=== PATIENT | male | born 1985 | race Two or more races ===

== ENCOUNTER 2018-04-24 08:04 | Emergency (ER) | payer MEDICARE, MEDICAID ==
[~2018-04-24] VITALS: Ht 167.6 cm; Wt 68.0 kg
[2018-04-24] MEDS ORDERED: LIDOCAINE 2% (LOCAL ANESTH.) PF 5ml SDV ONE (08:39)
[2018-04-24] MEDS ORDERED: LIDOCAINE 2% (LOCAL ANESTH.) PF 5ml SDV IJ ONE (08:45)
[2018-04-24 10:12] LABS: Basophils # (auto) 0.1 uL; Eosinophils # (auto) 0.7 uL; Hemoglobin 13.9 g/dL (13.5-17.5); Lymphocytes # (auto) 0.8 uL; Neutrophils # (auto) 3.9 uL; White Blood Cell 6.1 10^3/uL (4.4-10.8)
[2018-04-24 10:15] LABS: Basophils % (auto) 1.7 % (0.0-2.0); Eosinophils % (auto) 10.7 % (0.0-7.0); Hematocrit 45.3 % (41.0-53.0); Lymphocytes % (auto) 12.6 % (10.0-50.0); Mean Corpuscular Hemoglobin 23.7 pg (28.0-32.0); Mean Corpuscular Hgb Conc. 30.6 g/dL (32.0-36.0); Mean Corpuscular Volume 77.3 fL (80.0-100.0); Monocytes # (auto) 0.7 uL; Monocytes % (auto) 10.9 % (0.0-12.0); Neutrophils % (auto) 64.1 % (37.0-80.0); Nucleated Red Blood Cells % 0.7 %; Platelet Count (auto) 151 10^3/uL (140-450); Red Blood Cells 5.87 10^6/uL (4.5-5.90)
[2018-04-24 10:19] LABS: Red Cell Distribution Width 25.4 % (11.8-14.3)
[2018-04-24 10:23] LABS: INR 1.07 (0.9-1.15); Prothrombin Time 11.4 sec (9.27-12.13)
[2018-04-24 10:29] LABS: Potassium 4.8 mmol/L (3.5-5.1)
[2018-04-24 10:40] LABS: BUN/Creatinine Ratio 4.5; Calcium 7.4 mg/dL (8.5-10.1); Magnesium 3.3 mg/dL (1.6-2.6)
[2018-04-24 14:50] VITALS: BP 151/99
== END 2018-04-24 15:00 | disposition short-term general hospital (02) ==
LOC: ER 08:04
DX: T82.838A Hemorrhage due to vascular prosthetic devices, implants and grafts, initial encounter (principal); Y84.1 Kidney dialysis as the cause of abnormal reaction of the patient, or of later complication, without mention of misadventure at the time of the procedure; I12.0 Hypertensive chronic kidney disease with stage 5 chronic kidney disease or end stage renal disease; N18.6 End stage renal disease; E83.41 Hypermagnesemia; F17.210 Nicotine dependence, cigarettes, uncomplicated; Z99.2 Dependence on renal dialysis; Y92.89 Other specified places as the place of occurrence of the external cause
CPT/HCPCS: 36415; 80048; 83735; 85025; 85610; 99285; J2001